=== PATIENT | male | born 1995 | race Asian ===

== ENCOUNTER 2020-06-19 14:59 | Outpatient (CLI) | payer OTHER, SELFPAY | END 2020-06-19 15:00 | disposition home or self-care (01) | LOC: ANHCOVIDVC 14:59 | DX: Z23 Encounter for immunization (principal) | CPT/HCPCS: 0001A; 91300 ==

== ENCOUNTER 2020-07-10 15:00 | Outpatient (CLI) | payer OTHER, SELFPAY | END 2020-07-10 15:01 | disposition home or self-care (01) | LOC: ANHCOVIDVC 15:00 | DX: Z23 Encounter for immunization (principal) | CPT/HCPCS: 0002A; 91300 ==